=== PATIENT | female | born 1965 | race Hispanic/Latino ===

== ENCOUNTER 2017-05-23 21:48 | Observation (INO) | payer BC ==
[2017-05-23 21:52] VITALS: BMI 32.5
[2017-05-23] MEDS: Albuterol 0.083% Inhal Sol (2.5 mg/3 mL) UD INH PRN (23:53)
--- NOTE | 2017-05-24 00:40 | ED PDOC ---
Arrival/HPI - General Chief Complaint: Shortness Of Breath Time Seen by Provider: 05/23/17 21:58 Historian: Patient - History of Present Illness Narrative History of Present Illness (Text): 05/23/17 21:55 51 year old female, whose past medical history includes COPD, presents to the Emergency department by transfer from [facility] for COPD exacerbation and possible pneumonia. Patient reports cough for the past several fays and a subjective fever. Patient denies any recent travel or sick contact. Patient denies any chills, chest pain, abdominal pain, nausea, vomiting, diarrhea, back pain, neck pain, urinary/bowel changes, headache, dizziness, or any other complaint. Symptom Onset: Gradual Symptom Course: Unchanged Activities at Onset: Light Context: Home Past Medical History - Provider Review Nursing Documentation Reviewed: Yes - Infectious Disease Hx of Infectious Diseases: None - Pulmonary Hx Chronic Obstructive Pulmonary Disease (COPD): Yes - Psychiatric Hx Substance Use: No - Surgical History Hx Section: Yes (x1) - Anesthesia Hx Anesthesia: Yes Hx Anesthesia Reactions: No Hx Malignant Hyperthermia: No Family/Social History - Physician Review Nursing Documentation Reviewed: Yes Family/Social History: No Known Family HX Smoking Status: Current Some Days Smoker Hx Alcohol Use: No Hx Substance Use: No Allergies/Home Meds Allergies/Adverse Reactions: Allergies No Known Allergies Allergy (Verified 05/23/17 21:52) Home Medications: Home Meds Medication Instructions Recorded Confirmed Fluticasone/Vilanterol [Breo 1 pow IH DAILY 05/24/17 05/24/17 Ellipta] Review of Systems - Physician Review All systems were reviewed & negative as marked: Yes - Review of Systems Constitutional: Fevers. absent: Other Respiratory: SOB, Cough Cardiovascular: absent: Chest Pain Gastrointestinal: absent: Diarrhea, Nausea, Vomiting Genitourinary Female: absent: Dysuria, Frequency, Hematuria Musculoskeletal: absent: Back Pain, Neck Pain Neurological: absent: Headache, Dizziness Physical Exam Vital Signs Reviewed: Yes Vital Signs Temp Pulse Resp BP Pulse Ox 05/24/17 00:03 99.1 F 109 H 20 119/65 92 L 05/23/17 22:08 18 96 05/23/17 21:57 98.5 F 115 H 17 137/50 L 98 Temperature: Afebrile Blood Pressure: Normal Pulse: Tachycardic Respiratory Rate: Normal Appearance: Positive for: Well-Appearing, Non-Toxic, Comfortable Pain Distress: None Mental Status: Positive for: Alert and Oriented X 3 - Systems Exam Head: Present: Atraumatic, Normocephalic Pupils: Present: PERRL Extroacular Muscles: Present: EOMI Conjunctiva: Present: Normal Mouth: Present: Moist Mucous Membranes Neck: Present: Normal Range of Motion Respiratory/Chest: Present: Wheezes (Mild expiratory wheeze ). No: Respiratory Distress, Accessory Muscle Use Cardiovascular: Present: Regular Rate and Rhythm, Normal S1, S2. No: Murmurs Abdomen: Present: Normal Bowel Sounds. No: Tenderness, Distention, Peritoneal Signs Back: Present: Normal Inspection Upper Extremity: Present: Normal Inspection. No: Cyanosis, Edema Lower Extremity: Present: Normal Inspection. No: Edema Neurological: Present: GCS=15, CN II-XII Intact, Speech Normal Skin: Present: Warm, Dry, Normal Color. No: Rashes Psychiatric: Present: Alert, Oriented x 3, Normal Insight, Normal Concentration Medical Decision Making ED Course and Treatment: 05/23/17 21:55 Impression: 51 year old female presents transferred from [facility] ER for admission for COPD exacerbation and possible pneumonia. Plan: -- EKG -- Albuterol -- Reassess and disposition Progress Notes: EKG shows Sinus tachycardia at 109 BPM with normal axis. PVC. Interpreted by me. 05/23/17 22:55 Patient transferred for admission to Dr. Saad Gage which we knew prior to patient's transfer to [facility]. Patient will be admitted for COPD exacerbation and pneumonia. - EKG Interpretation Interpreted by ED Physician: Yes Type: 12 lead EKG - Medication Orders Current Medication Orders: Albuterol Sulfate (Albuterol 0.083% Inhal Dayana (2.5 Mg/3 Ml) Ud) 2.5 mg INH Q4 PRN PRN Reason: wheezing Last Admin: 05/23/17 23:53 Dose: 2.5 mg - Scribe Statement The provider has reviewed the documentation as recorded by the Melissa Dempsey Provider Scribe Attestation: All medical record entries made by the Scribe were at my direction and personally dictated by me. I have reviewed the chart and agree that the record accurately reflects my personal performance of the history, physical exam, medical decision making, and the department course for this patient. I have also personally directed, reviewed, and agree with the discharge instructions and disposition. Disposition/Present on Arrival - Present on Arrival Any Indicators Present on Arrival: No History of DVT/PE: No History of Uncontrolled Diabetes: No Urinary Catheter: No History of Decub. Ulcer: No History Surgical Site Infection Following: None - Disposition Have Diagnosis and Disposition been Completed?: Yes Diagnosis: Community acquired pneumonia, COPD exacerbation Disposition: HOSPITALIZED Disposition Time: 21:55 Condition: STABLE
[2017-05-24] MEDS: Albuterol 0.083% Inhal Sol (2.5 mg/3 mL) UD INH PRN (07:28)
[2017-05-24] MEDS ORDERED: Albuterol-Ipratrop 3 mg / 0.5 (3 ml) UD IH PRN (08:03)
[2017-05-24 08:05] VITALS: BP 107/61; PULSE 101; RESP 22; TEMP 98.2; O2SAT 96
[2017-05-24] MEDS ORDERED: Influenza Vaccine 60 mcg/0.5 mL SYR (4YR UP) IM ONE (09:58)
[2017-05-24] MEDS ORDERED: Pneumococcal 23-Valent Vaccine IM ONE (09:59)
[2017-05-24] MEDS ORDERED: MethylPREDNISolone 40 mg Vial IVP SCH (10:00)
--- NOTE | 2017-05-24 11:26 | HP ---
HISTORY OF PRESENT ILLNESS: The patient is a 51-year-old woman with a past medical history of COPD, who presented for evaluation of several day history of worsening chest tightness, dyspnea, subjective fevers and cough productive of green sputum. The patient reports that she was in her usual state of health until the onset of symptoms, which began suddenly. She reports rapid development of chest tightness associated with wheeze and difficulty breathing. The patient is on Breo at home for her underlying COPD and reports no improvement in her symptoms with the use of her prescribed inhaler. Given the worsening nature of her symptoms and the fact that they do not respond to her inhaler, she opted for evaluation in the ED. Upon arrival to the ED, she was noted to be afebrile and hemodynamically stable, albeit in moderate respiratory distress. She received Solu-Medrol 125 mg IV x1 and multiple rounds of bronchodilator treatments; however, given her persistent symptoms, she was admitted to the general medical [facility] for continued management of COPD exacerbation. PAST MEDICAL HISTORY: As per HPI. PAST SURGICAL HISTORY: As per HPI. ALLERGIES: No known drug allergies. MEDICATIONS: Breo inhaler. FAMILY HISTORY: Significant for hypertension and COPD in her parents. SOCIAL HISTORY: The patient reports a 20 pack year smoking history and social alcohol use. She denies illicit drug abuse. REVIEW OF SYSTEMS: A 14-point review of systems is negative except as per HPI. PHYSICAL EXAMINATION VITAL SIGNS: Temperature 98.2, pulse 100, blood pressure 107/61, respiratory rate 22, oxygen saturation 96% on room air. GENERAL: No apparent distress. HEENT: PERRL. EOMI. No scleral icterus. No conjunctival pallor. NECK: Supple with full range of motion. No JVD. No bruits. LUNGS: Few scattered rhonchi with expiratory wheeze. CARDIOVASCULAR: Regular rate and rhythm. Normal S1 and S2. ABDOMEN: Normoactive bowel sounds, soft, nontender, nondistended. EXTREMITIES: No edema. NEUROLOGIC: Awake, alert and oriented x3. No focal motor deficits. LABORATORY DATA: Morning labs are pending. ASSESSMENT: The patient is a 51-year-old woman with the past medical history of chronic obstructive pulmonary disease who presented with a several day history of worsening chest tightness, wheeze, dyspnea and cough productive of green sputum and who was admitted for management of chronic obstructive pulmonary disease exacerbation. PLAN: 1. COPD exacerbation; continue Solu-Medrol 40 mg IV q. 12 hours and bronchodilators and supplemental oxygen as needed. The patient has been started on doxycycline 100 mg p.o. q. 12 hours. This morning, she reports significant improvement in her respiratory status and states that she would like to go home. 2. Disposition: The patient for discharge to home. She will be sent out on prednisone taper and Levaquin 500 mg p.o. daily. CODE STATUS: Full code. Moises Gage MD
[2017-05-24] MEDS: Albuterol-Ipratrop 3 mg / 0.5 (3 ml) UD IH SCH ×2 (11:46→14:58)
--- NOTE | 2017-05-24 15:58 | CARD ---
APPROVED REPORT EKG Measurement Heart [id number] <Conclusion> Sinus tachycardia with occasional premature ventricular complexes Low voltage QRS Possible Inferior infarct, age undetermined Cannot rule out Anterior infarct, age undetermined Abnormal ECG
== END 2017-05-24 15:06 | disposition home or self-care (01) ==
LOC: ED 21:48 → ERH 22:50 → 5RNO 05-24 00:40
PROVIDERS: ADMIT Internal Medicine; ATTEND Internal Medicine
DX: J44.0 Chronic obstructive pulmonary disease with (acute) lower respiratory infection (principal); J18.9 Pneumonia, unspecified organism; J44.1 Chronic obstructive pulmonary disease with (acute) exacerbation; Z82.49 Family history of ischemic heart disease and other diseases of the circulatory system; Z82.5 Family history of asthma and other chronic lower respiratory diseases; Z87.891 Personal history of nicotine dependence
CPT/HCPCS: 93005; 94640; 94760; 99285; G0378; J2920

== ENCOUNTER 2018-04-17 23:18 | Emergency (ER) | payer BC ==
[2018-04-17 23:22] VITALS: BMI 29.9
[2018-04-17 23:24] VITALS: TEMP 98.1
--- NOTE | 2018-04-17 23:55 | ED PDOC ---
Arrival/HPI <Jai Reyes - Last Filed: 04/18/18 03:26> - General Historian: Patient - History of Present Illness Narrative History of Present Illness (Text): 04/17/18 23:50 52 y/o F with PMHx of COPD, DM2 presents with symptoms of chest palpitations with associated 7/10 severity chest heaviness, discomfort, agitation, shortness of breath and nausea for the past 2 days at rest that is relieved with brio inhaler, not aggravated by anything in particular. She denies current active chest pain, diaphoresis, nausea, radiation to arm or jaw. She denies sick contac ts, or recent travel. She denies receiving flu shot. Per pt, she had recently visited hospital in [place], [place] in 01/2018 and was admitted for sepsis 2/2 pneumonia. She was diagnosed with DM during that visit. She reports subjective fevers but denies chills, bodyaches, headache, dizziness, vomiting, constipation, diarrhea, dysuria. PMH: DM, COPD All: denies PSH: denies SH: 1/2 pack cigarettes x 35 years. Denies alcohol/illicit drug use Hosp: 01/2018: sepsis, pneumonia FH: Mother: DM Meds: Breo inhaler PMD: Dr. Low 04/18/18 03:00 Time/Duration: Prior to Arrival Symptom Onset: Gradual Symptom Course: Unchanged Quality: Pressure Severity Level: 7 Activities at Onset: Rest Context: Sitting <Rose Millan - Last Filed: 04/18/18 05:06> - General Chief Complaint: Cough, Cold, Congestion Time Seen by Provider: 04/17/18 23:20 Past Medical History - Provider Review Nursing Documentation Reviewed: Yes - Infectious Disease Hx of Infectious Diseases: None - Reproductive Menopause: Yes - Pulmonary Hx Chronic Obstructive Pulmonary Disease (COPD): Yes - Endocrine/Metabolic Hx Diabetes Mellitus Type 2: No - Musculoskeletal/Rheumatological Hx Falls: No - Psychiatric Hx Substance Use: No - Surgical History Hx Section: Yes (x1) - Anesthesia Hx Anesthesia: Yes Hx Anesthesia Reactions: No Hx Malignant Hyperthermia: No <Rose Millan - Last Filed: 04/18/18 05:06> Family/Social History - Physician Review Nursing Documentation Reviewed: Yes Family/Social History: Unknown Family HX Smoking Status: Current Some Days Smoker Hx Alcohol Use: No Hx Substance Use: No <Rose Millan Filed: 04/18/18 05:06> Allergies/Home Meds <Jai Reyes Filed: 04/18/18 03:26> <Rose Millan Last Filed: 04/18/18 05:06> Allergies/Adverse Reactions: Allergies No Known Allergies Allergy (Verified 04/17/18 23:24) Home Medications: Home Meds Medication Instructions Recorded Confirmed RX: Fluticasone/Vilanterol [Breo 1 pow IH DAILY 05/24/17 04/18/18 Ellipta 100-25 Mcg INH] Review of Systems - Physician Review All systems were reviewed & negative as marked: Yes - Review of Systems Constitutional: Fevers Eyes: Vision Changes ENT: Normal Respiratory: SOB, Cough Cardiovascular: Palpitations Gastrointestinal: Normal Genitourinary Female: Normal Musculoskeletal: Normal Skin: Normal Neurological: Normal Endocrine: Normal Hemo/Lymphatic: Normal Psychiatric: Normal <Rose Millan Filed: 04/18/18 05:06> Physical Exam Vital Signs Temp Pulse Resp BP Pulse Ox 04/17/18 23:22 98.1 F 100 H 20 120/76 96 <Jai Reyes Last Filed: 04/18/18 03:26> Vital Signs Reviewed: Yes Vital Signs Temp Pulse Resp BP Pulse Ox 04/17/18 23:22 98.1 F 100 H 20 120/76 96 Temperature: Afebrile Blood Pressure: Normal Pulse: Tachycardic Respiratory Rate: Normal Appearance: Positive for: Well-Appearing, Non-Toxic, Comfortable Pain Distress: Mild Mental Status: Positive for: Alert and Oriented X 3 - Systems Exam Head: Present: Atraumatic, Normocephalic Pupils: Present: PERRL Extroacular Muscles: Present: EOMI Conjunctiva: Present: Normal Mouth: Present: Moist Mucous Membranes Neck: Present: Normal Range of Motion Respiratory/Chest: Present: Clear to Auscultation, Good Air Exchange. No: Respiratory Distress, Accessory Muscle Use Cardiovascular: Present: Normal S1, S2, Tachycardic. No: Murmurs Abdomen: No: Tenderness, Distention, Peritoneal Signs Back: Present: Normal Inspection Upper Extremity: Present: Normal Inspection. No: Cyanosis, Edema Lower Extremity: Present: Normal Inspection. No: Edema Neurological: Present: GCS=15, CN II-XII Intact, Speech Normal Skin: Present: Warm, Dry, Normal Color. No: Rashes Psychiatric: Present: Alert, Oriented x 3, Normal Insight, Normal Concentration <MontyFreddyeddie - Last Filed: 04/18/18 05:06> Medical Decision Making ED Course and Treatment: Patient Seen with Resident: In agreement with resident note which contains more details about the patient. Patient seen and evaluated with resident. Came up with plan and treatment together. 52 year old female presents complaining of chest palpitations and shortness of breath associated with nausea and agitation for the past 2 days. Plan: -- EKG -- Labs -- Chest X-ray -- Douneb -- Urinalysis -- Reassess and disposition 04/18/18 02:20 On re-evaluation, patient is in no acute distress. I have discussed the results and plan with the patient, who expresses understanding. Patient in agreement with plan to be discharged home. Patient is stable for discharge. Patient was instructed to follow up with physician or return if symptoms worsen or new concerning symptoms arise. - Lab Interpretations Lab Results: 04/18/18 00:10 04/18/18 00:10 Lab Results 04/18/18 00:30: Urine Color Yellow, Urine Appearance Clear, Urine pH 6.0, Ur Specific [place] >= 1.030, Urine Protein Negative, Urine Glucose (UA) >=1000, Urine Ketones Trace H, Urine Blood Negative, Urine Nitrate Negative, Urine Bilirubin Negative, Urine Urobilinogen 1.0 H, Ur Leukocyte Esterase Negative 04/18/18 00:10: Sodium 139, Potassium 3.9, Chloride 105, Carbon Dioxide 25, Anion Gap 13, BUN 11, Creatinine 0.7, Est GFR ( Amer) > 60, Est GFR (Non- Af Amer) > 60, Random Glucose 231 H, Calcium 9.2, Total Bilirubin 0.4, AST 14, ALT 12, Alkaline Phosphatase 125, Troponin I < 0.01, Total Protein 7.1, Albumin 3.7, Globulin 3.4, Albumin/Globulin Ratio 1.1, Lipase 28 04/18/18 00:10: D-Dimer, Quantitative < 200 04/18/18 00:10: WBC 15.4 H, RBC 5.07, Hgb 15.2, Hct 44.0, MCV 86.8, MCH 30.0, MCHC 34.5, RDW 13.7, Plt Count 444, MPV 9.6, Gran % 72.0 H, Lymph % (Auto) 19.1 L, [place] % (Auto) 7.6 H, Eos % (Auto) 1.2 L, Baso % (Auto) 0.1, Gran # 11.10 H, Lymph # (Auto) 2.9, [place] # (Auto) 1.2 H, Eos # (Auto) 0.2, Baso # (Auto) 0.02 I have reviewed the lab results: Yes - RAD Interpretation Narrative RAD Interpretations (Text): 04/18/18 02:23 Chest X-ray Impression: As ready by me, trachea midline, no focal consolidation, no cardiomegaly noted, no vascular congestion. Radiology Orders: 04/17/18 23:58 CHEST PORTABLE [RAD] Stat Under Cutting Machine Operator: ED Physician - EKG Interpretation EKG Interpretation (Text): 04/18/18 02:28 EKG shows Sinus tachycardia at 111 BPM with low voltage, no ST elevation. Interpreted by me. Interpreted by ED Physician: Yes Type: 12 lead EKG - Medication Orders Current Medication Orders: Discontinued Medications Albuterol/Ipratropium (Duoneb 3 Mg/0.5 Mg (3 Ml) Ud) 3 ml IH STAT STA Stop: 04/18/18 01:12 Last Admin: 04/18/18 01:21 Dose: 3 ml <Bosompem,Jai - Last Filed: 04/18/18 03:26> ED Course and Treatment: 04/18/18 00:05 Impression: 52 y/o F with PMHx of DM, COPD presents to ED with complaints of chest palpitations, chest heaviness, shortness of breath, nausea, agitation for the past 2 days. Differential diagnosis includes but are not limited to: Sinus tachycardia COPD exacerbation Acute SC Plan: -- Labs -- EKG -- Chest Xray -- U/A -- Reassess & disposition Prior visits: Notes & results from prior visits were review. Pt last seen in emergency room on 04/2017 for cough & symptoms of copd exacerbation. Progress Notes: 04/18/18 01:12 Pt reports SOB, Duoneb treatment ordered 04/18/18 01:50 Pt revaluated, improved SOB - Lab Interpretations I have reviewed the lab results: Yes <Freddy Millaneddie - Last Filed: 04/18/18 05:06> - Scribe Statement The provider has reviewed the documentation as recorded by the Melissa Dempsey Provider Danayibe Attestation: All medical record entries made by the Scribe were at my direction and personally dictated by me. I have reviewed the chart and agree that the record accurately reflects my personal performance of the history, physical exam, medical decision making, and the department course for this patient. I have also personally directed, reviewed, and agree with the discharge instructions and disposition. <Jai Reyes - Last Filed: 04/18/18 03:26> - PA / G[employer] APPLIANCE INSTALLER / Resident Statement / has reviewed & agrees with the documentation as recorded. / has examined the patient and agrees with the treatment plan. <Rose Millan - Last Filed: 04/18/18 05:06> Disposition/Present on Arrival - Disposition Have Diagnosis and Disposition been Completed?: Yes Disposition Time: 02:22 Patient Plan: Discharge <Ronald Reyesyl - Last Filed: 04/18/18 03:26> - Present on Arrival Any Indicators Present on Arrival: No History of DVT/PE: No History of Uncontrolled Diabetes: No Urinary Catheter: No History of Decub. Ulcer: No History Surgical Site Infection Following: None - Disposition Have Diagnosis and Disposition been Completed?: Yes Patient Plan: Discharge <Freddy Millaneddie - Last Filed: 04/18/18 05:06> - Disposition Diagnosis: Bronchitis Disposition: HOME/ ROUTINE Condition: IMPROVED Discharge Instructions (ExitCare): Acute Bronchitis, Adult (DC) Print Language: TAJIK Prescriptions: Albuterol HFA [Ventolin HFA 90 mcg/actuation (8 g)] 200 puff IH Q6H #1 puff Methylprednisolone [Medrol Dose Pack (21 tabs)] 4 mg PO DAILY #21 mg Referrals: Maty Acevedo MD [Medical Doctor] - Follow up with primary [facility] [place] - Follow up with primary Forms: [employer] (Telugu)
[2018-04-18 00:34] LABS: BASO # 0.02 K/mm3 (0.0-2.0); BASO % 0.1 % (0.0-3.0); EOS # 0.2 (0.0-0.7); EOS % 1.2 % (1.5-5.0); GRAN # 11.1 (1.4-6.5); HEMOGLOBIN 15.2 g/dL (12.0-16.0); LYMPH # 2.9 (1.2-3.4); LYMPH % 19.1 % (22.0-35.0); MEAN CELL VOLUME 86.8 fl (80.0-105.0); MEAN CORPUSCULAR HGB CONC 34.5 g/dl (31.0-37.0); MEAN PLATELET VOLUME 9.6 fl (7.0-11.0); MONO # 1.2 (0.1-0.6); MONO % 7.6 % (1.0-6.0); RBC 5.07 10^6/uL (3.5-6.1); RED CELL DISTRIBUTION WIDTH 13.7 % (11.5-14.5); WHITE BLOOD COUNT 15.4 10^3/uL (4.5-11.0)
[2018-04-18 00:39] LABS: ALB/GLOB RATIO 1.1 (1.1-1.8); ALBUMIN 3.7 g/dL (3.0-4.8); ALT/SGPT 12 U/L (7-56); AST/SGOT 14 U/L (14-36); BLOOD UREA NITROGEN 11 mg/dL (7-21); CALCIUM 9.2 mg/dL (8.4-10.5); GFR NON-AFRICAN AMERICAN > 60; LIPASE 28 U/L (23-300)
[2018-04-18 00:49] LABS: TROPONIN I < 0.01 ng/mL
[2018-04-18 01:00] LABS: URINE BILIRUBIN NEGATIVE (NEGATIVE); URINE BLOOD NEGATIVE (NEGATIVE); URINE GLUCOSE (UA) >=1000 mg/dL (NEGATIVE); URINE LEUKOCYTE ESTERASE NEGATIVE Leu/uL (NEGATIVE); URINE PROTEIN NEGATIVE mg/dL (<30 mg/dL)
[2018-04-18 01:07] LABS: URINE APPEARANCE CLEAR (CLEAR); URINE COLOR YELLOW (YELLOW)
[2018-04-18] MEDS ORDERED: Albuterol-Ipratrop 3 mg / 0.5 (3 ml) UD IH STA (01:11)
[2018-04-18 02:55] VITALS: RESP 18; O2SAT 99
[2018-04-18 02:57] VITALS: BP 122/80; PULSE 78
--- NOTE | 2018-04-18 09:27 | CARD ---
APPROVED REPORT Date of service: 04/18/2018 EKG Measurement Heart [id number] <Conclusion> Sinus tachycardia Low voltage QRS Possible Inferior infarct, old NSSTW changes No change
== END 2018-04-18 02:35 | disposition home or self-care (01) ==
LOC: ED 23:18
DX: J40 Bronchitis, not specified as acute or chronic (principal); E11.9 Type 2 diabetes mellitus without complications; F17.210 Nicotine dependence, cigarettes, uncomplicated